=== PATIENT | male | born 1960 | race Caucasian/White ===

== ENCOUNTER 2017-08-29 09:50 | Observation (INO) | payer OTHER ==
[2017-08-23 09:11] VITALS: BMI 28.0
--- NOTE | 2017-08-23 09:43 | PAT Medication Instructions ---
Service Date Aug 23, 2017. Current Home Medication List Aspirin (Aspirin Ec), 81 MG PO DAILY Carvedilol (Coreg), 12.5 MG PO UD Finasteride (Proscar), 5 MG PO UD Irbesartan (Avapro), 150 MG PO UD Omeprazole (Prilosec), 20 MG PO UD Rosuvastatin Calcium (Crestor), 10 MG PO UD Tamsulosin HCl (Tamsulosin HCl), 1 TAB PO HS Medication Instructions For Your Scheduled Surgery - Continue as directed: Rosuvastatin Calcium (Crestor), 10 MG PO UD Omeprazole (Prilosec), 20 MG PO UD Carvedilol (Coreg), 12.5 MG PO UD - Check with surgeon for instructions: Aspirin (Aspirin Ec), 81 MG PO DAILY - Hold the following medications the morning of surgery: Finasteride (Proscar), 5 MG PO UD Irbesartan (Avapro), 150 MG PO UD - Take the following medications as scheduled the night before surgery: Tamsulosin HCl (Tamsulosin HCl), 1 TAB PO HS If you have any questions please call us at [phone] or [phone] or [phone]
--- NOTE | 2017-08-23 10:18 | DIAGNOSTIC IMAGING REPORT ---
CHEST 2 VIEWS ROUTINE CLINICAL HISTORY: Preoperative chest COMPARISON STUDY: No previous studies for comparison. FINDINGS: The cardiac and mediastinal contours are normal. There is no evidence of focal pulmonary consolidation. There is no evidence of failure. No pleural effusions are visualized.[ IMPRESSION: No active disease in the chest. Electronically signed by: Scot Lares M.D. 08/23/2017 10:17 AM Dictated Date/Time: 08/23/2017 10:17 AM
[2017-08-23 10:43] LABS: BASO % 0.3 %; BASO ABS # 0.02 K/uL (0-0.2); EOS % 2.1 %; EOS ABS # 0.15 K/uL (0-0.5); HEMATOCRIT 47.6 % (42-52); IG# 0.02 K/uL (0.00-0.02); LYMPH % 40.2 %; LYMPH ABS # 2.88 K/uL (1.2-3.4); MEAN CELL VOLUME 88.8 fL (80-100); MEAN CORPUSCULAR HEMOGLOBIN 29.9 pg (25-34); MEAN CORPUSCULAR HGB CONC 33.6 g/dl (32-36); MEAN PLATELET VOLUME 10.8 fL (7.4-10.4); MONO % 11.7 %; MONO ABS # 0.84 K/uL (0.11-0.59); NEUT % 45.4 %; NEUT ABS # 3.25 K/uL (1.4-6.5); PLATELET COUNT 156 K/uL (130-400); RED CELL DISTRIBUTION WIDTH SD 41.8 fL (36.4-46.3); WHITE BLOOD COUNT 7.16 K/uL (4.8-10.8)
[2017-08-23 11:43] LABS: CALCIUM 9.1 mg/dl (8.5-10.1); CREATININE 1.05 mg/dl (0.60-1.40); POTASSIUM 4.4 mmol/L (3.5-5.1)
[~2017-08-29] VITALS: Ht 182.9 cm; Wt 95.1 kg
[~2017-08-29 09:50] MED LIST: ASPI81TA28 PO; CARV12.52 PO; CIPROFLOXACIN / D5W 400 MG IV SCH; CRS/10 PO; FINA5TAB PO; FLM4 PO; IRBE-37 PO; LACTATED RINGER'S 1000ML 1,000 ML IV SCH; PRLSR20 PO
[2017-08-29] MEDS ORDERED: DIAZ-165 PO (10:22)
[2017-08-29 10:24] VITALS: BP 140/73; PULSE 80; TEMP 36.6; O2SAT 98; Ht 182.9 cm; Wt 95.1 kg
[2017-08-29] MEDS ORDERED: MEPERIDINE HCL 25 MG/ML CARP IV PRN (11:45)
[2017-08-29] MEDS ORDERED: FENTANYL CITRATE INJ 50 MCG/1 ML 2 ML VIAL IV PRN (11:45)
[2017-08-29] MEDS ORDERED: ONDANSETRON INJ 2 MG/ML 2 ML VIAL IV PRN ×2 (11:45→14:00)
[2017-08-29] MEDS ORDERED: ATROPINE SULFATE 0.1 MG/ML 5ML SYR IV PRN (11:45)
[2017-08-29] MEDS ORDERED: HYDROmorphone INJ 2 MG/ML SYR/VIAL IV PRN (11:45)
[2017-08-29] MEDS ORDERED: EpHEDrine SULFATE INJ 50 MG/ML AMP IV PRN (11:45)
[2017-08-29] MEDS ORDERED: LABETALOL HCL IV 5 MG/ML 20ML IV PRN (11:45)
[2017-08-29] MEDS ORDERED: NALOXONE HCL 0.4 MG/1 ML VIAL/CARP IV PRN (11:45)
[2017-08-29] MEDS ORDERED: FLUMAZENIL 0.1 MG/1 ML 10 ML VIAL IV PRN (11:45)
[2017-08-29] MEDS ORDERED: PHENYLEPHRINE 100MCG/ML 5ML SYR IV PRN (11:45)
[2017-08-29] MEDS ORDERED: DEXAMETHASONE SOD INJ 4 MG/ML VIAL ONE (11:48)
[2017-08-29] MEDS ORDERED: LIDOCAINE HCL 2% 2 ML VIAL (20MG/ML) ONE (11:48)
[2017-08-29] MEDS ORDERED: FENTANYL CITRATE INJ 50 MCG/1 ML 2 ML VIAL ONE ×2 (11:48→13:22)
[2017-08-29] MEDS ORDERED: PROPOFOL IV EMULSION 10 MG/ML 20 ML VIAL IV ONE (11:48)
[2017-08-29] MEDS ORDERED: MIDAZOLAM HCL 1 MG/ML 2ML VIAL ONE (11:48)
[2017-08-29] MEDS ORDERED: ONDANSETRON INJ 2 MG/ML 2 ML VIAL ONE (11:48)
--- NOTE | 2017-08-29 12:04 | History & Physical Bridge Note ---
H&P Re-Evaluation Bridge Note: I have examined the patient, reviewed the History & Physical and in the interval since the performance of the History & Physical I have noted the following changes of clinical significance: No changes noted
[2017-08-29] MEDS ORDERED: PHENYLEPHRINE 100MCG/ML 5ML SYR ONE (13:10)
[2017-08-29] MEDS ORDERED: BELLADONNA/OPIUM SUPP 60 MG SUPP PR ONE ×2 (13:10→13:12)
[2017-08-29] MEDS ORDERED: EpHEDrine SULFATE 50MG/5ML SYR ONE (13:10)
--- NOTE | 2017-08-29 13:37 | [facility] Post Operative Brief Note ---
Immediate Operative Summary Operative Date Aug 29, 2017. Pre-Operative Diagnosis Benign prostatic hyperplasia Post-Operative Diagnosis Benign prostatic hyperplasia Procedure(s) Performed Cystoscopy, Transurethral Resection Prostate Surgeon Dr. Levar Iglesias Beater Tender Surgeon(s) none Estimated Blood Loss 20ml Findings Consistent with Post-Op Diagnosis Specimens none Drains Peterson Anesthesia Type General Complication(s) none Disposition Accompanied Pt To Recover: yes Disposition: Recovery Room / PACU
[2017-08-29] MEDS ORDERED: PHEN-876 PO (13:56)
[2017-08-29] MEDS ORDERED: CIPR-255 PO (13:56)
--- NOTE | 2017-08-29 13:59 | Discharge Instructions ---
Discharge Instructions Date of Service Aug 29, 2017. Admission Reason for Admission: Benign Prostatic Hyperplasia W/Urinary Obstruction Discharge Discharge Diagnosis / Problem: BPH with urinary obstruction Discharge Goals Goal(s): Improve disease control, Therapeutic intervention Activity Recommendations Activity Limitations: as noted below Lifting Limitations: no more than 25 pounds (x 1 week ) Exercise/Sports Limitations: rest today, gradually increase as tolerated ( Light activity x 1 week ) Shower/Bathe: no limitations Driving or Machine Use: resume 3 days after discharge . Current Hospital Diet Patient's current hospital diet: Discharge Diet Recommended Diet: Regular Diet Procedures Procedures Performed: Cystoscopy, Transurethral Resection Prostate Pending Studies Studies pending at discharge: no Medical Emergencies . Who to Call and When: Medical Emergencies: If at any time you feel your situation is an emergency, please call 911 immediately. . Non-Emergent Contact Non-Emergency issues call your: Urologist Call Non-Emergent contact if: temperature is above 101.5, your pain is not controlled, your pain is worsening, your pain is unusual for you, your pain is concerning you, you have any medication questions . . "Provider Documentation" section prepared by Tami Valente. . VTE Core Measure Inpt VTE Proph given/why not?: SCD's
[2017-08-29] MEDS ORDERED: DIAZEPAM 5MG TAB PO PRN (14:00)
[2017-08-29] MEDS ORDERED: ACETAMINOPHEN 325 MG TAB PO PRN (14:00)
[2017-08-29] MEDS ORDERED: ACETAMINOPHEN/CODEINE 300/30MG TAB PO PRN ×2 (14:00)
--- NOTE | 2017-08-29 14:28 | Anesthesiology Progress Note ---
Anesthesia Post Op Note Date & Time Aug 29, 2017 at 14:28 Vital Signs Pain Intensity: 0 Vital Signs Past 12 Hours Date Time Temp Pulse Resp B/P (MAP) Pulse Ox O2 Delivery O2 Flow Rate FiO2 08/29/17 14:21 83 16 149/88 99 08/29/17 14:21 84 16 08/29/17 14:16 76 10 100 08/29/17 14:16 76 10 08/29/17 14:15 162/99 08/29/17 14:11 70 12 08/29/17 14:11 70 12 100 08/29/17 14:10 144/95 08/29/17 14:06 65 11 08/29/17 14:06 65 11 100 08/29/17 14:05 134/98 08/29/17 14:01 67 10 99 08/29/17 14:01 68 10 08/29/17 14:00 135/90 08/29/17 13:58 68 10 08/29/17 13:58 67 10 99 08/29/17 13:55 124/83 08/29/17 13:53 70 16 98 08/29/17 13:53 71 16 08/29/17 13:52 71 13 08/29/17 13:52 72 13 98 08/29/17 13:50 113/79 08/29/17 13:47 74 17 08/29/17 13:47 74 17 97 08/29/17 13:45 119/71 08/29/17 13:43 113/69 08/29/17 13:42 36.4 79 16 113/69 (75) 96 Oxymask 10 08/29/17 13:42 80 08/29/17 13:42 80 96 08/29/17 10:24 36.6 80 18 140/73 (95) 98 Room Air Notes Mental Status: alert / awake / arousable, participated in evaluation Pt Amnestic to Procedure: Yes Nausea / Vomiting: adequately controlled Pain: adequately controlled Airway Patency, RR, SpO2: stable & adequate BP & HR: stable & adequate Hydration State: stable & adequate Anesthetic Complications: no major complications apparent
[2017-08-29] MEDS ORDERED: IV FLUIDS COMPLETED PRN (15:00)
[2017-08-29 15:09] VITALS: BP 148/90; PULSE 65; TEMP 36.6; O2SAT 99
[2017-08-29 15:10] VITALS: O2SAT 99
[2017-08-29] MEDS ORDERED: INFLUENZA VIRUS QUAD VACCINE 0.5 ML SYR IM. ONE (15:45)
[2017-08-29] MEDS ORDERED: INFLUENZA ADMINISTRATION CHARGE ONE (15:45)
[2017-08-29] MEDS: LACTATED RINGER'S 1000ML 1,000 ML IV SCH ×2 (15:57→23:40)
[2017-08-29 17:00] VITALS: BP 148/82; PULSE 84; TEMP 36.8; O2SAT 95
[2017-08-29 18:10] VITALS: BP 135/76; PULSE 84; TEMP 37.2; O2SAT 94
[2017-08-29 23:10] VITALS: BP 118/68; PULSE 110; TEMP 36.7; O2SAT 94
[2017-08-30 01:15] VITALS: PULSE 90
[2017-08-30 03:43] VITALS: BP 115/65; PULSE 115; TEMP 36.8; O2SAT 95
[2017-08-30 04:30] VITALS: PULSE 97
[2017-08-30] MEDS ORDERED: NURSING VERBAL MED ORDER ONE (04:30)
[2017-08-30 05:51] LABS: EOS % 0.1 %; EOS ABS # 0.01 K/uL (0-0.5); HEMATOCRIT 42.3 % (42-52); HEMOGLOBIN 13.9 g/dL (14.0-18.0); IG# 0.04 K/uL (0.00-0.02); LYMPH % 14.2 %; LYMPH ABS # 1.84 K/uL (1.2-3.4); MEAN CELL VOLUME 88.3 fL (80-100); MEAN CORPUSCULAR HGB CONC 32.9 g/dl (32-36); MEAN PLATELET VOLUME 10.9 fL (7.4-10.4); MONO % 6.5 %; MONO ABS # 0.85 K/uL (0.11-0.59); NEUT % 78.9 %; NEUT ABS # 10.24 K/uL (1.4-6.5); PLATELET COUNT 161 K/uL (130-400); RED CELL DISTRIBUTION WIDTH CV 12.5 % (11.5-14.5); RED CELL DISTRIBUTION WIDTH SD 40.1 fL (36.4-46.3); WHITE BLOOD COUNT 12.98 K/uL (4.8-10.8)
[2017-08-30] MEDS: LACTATED RINGER'S 1000ML 1,000 ML IV SCH (06:10)
[2017-08-30 06:27] LABS: CALCIUM 8.5 mg/dl (8.5-10.1); CREATININE 1.03 mg/dl (0.60-1.40); POTASSIUM 4.1 mmol/L (3.5-5.1)
[2017-08-30 06:57] VITALS: BP 125/76; PULSE 98; TEMP 36.7; O2SAT 97
--- NOTE | 2017-08-30 07:10 | Progress Note ---
Subjective Date of Service: Aug 30, 2017. Subjective Pt evaluation today including: conversation w/ patient, physical exam, lab review Voiding: almonte catheter in place did very well overnight - tolerating diet -oob and ambulating - anxious to go home Review of Systems Constitutional: No see HPI, No fever, No chills, No sweats, No weight loss, No weakness, No fatigue, No problem reported Eyes: No see HPI, No worsening of vision, No eye pain, No redness, No discharge , No diplopia, No problem reported ENT: No see HPI, No hearing loss, No unusual epistaxis, No nasal symptoms, No sore throat, No tinnitus, No dental problems, No trouble swallowing, No problem reported Respiratory: No see HPI, No cough, No sputum, No wheezing, No shortness of breath, No dyspnea on exertion, No dyspnea at rest, No hemoptysis, No problem reported Cardiac: No see HPI, No chest pain, No orthopnea, No PND, No edema, No claudication, No palpitations, No problem reported Breast: No see HPI, No breast lump, No change in shape, No nipple discharge, No breast pain, No problem reported Abdomen: No see HPI, No pain, No nausea, No vomiting, No diarrhea, No constipation, No GI bleeding, No problem reported Male : + problem reported Neurologic: No see HPI, No memory loss, No paralysis, No weakness, No numbness/ tingling, No vertigo, No balance problems, No problem reported Psychiatric: No see HPI, No depression symptoms, No anhedonism, No anxiety, No insomnia, No substance abuse, No problem reported Heme: No see HPI, No abnormal bleeding/bruising, No clotting problems, No swollen lymph nodes, No night sweats, No problem reported Endo: No see HPI, No fatigue, No excessive thirst, No excessive urination, No problem reported Objective Vital Signs Date Time Temp Pulse Resp B/P (MAP) Pulse Ox O2 Delivery O2 Flow Rate FiO2 08/30/17 06:57 36.7 98 19 125/76 (92) 97 Room Air 08/30/17 04:30 97 08/30/17 03:43 36.8 115 18 115/65 (82) 95 Room Air 08/30/17 01:15 90 08/29/17 23:30 Room Air 08/29/17 23:10 36.7 110 20 118/68 (85) 94 Room Air 08/29/17 18:10 37.2 84 18 135/76 (95) 94 Room Air 08/29/17 17:00 36.8 84 16 148/82 (104) 95 Room Air 08/29/17 15:50 Room Air 08/29/17 15:10 99 Nasal Cannula 2.0 08/29/17 15:09 36.6 65 16 148/90 (109) 99 Nasal Cannula 2.0 08/29/17 14:40 36.3 69 16 142/98 (103) 100 Nasal Cannula 2 08/29/17 14:21 83 16 149/88 99 08/29/17 14:21 84 16 08/29/17 14:16 76 10 100 08/29/17 14:16 76 10 08/29/17 14:15 162/99 08/29/17 14:11 70 12 08/29/17 14:11 70 12 100 08/29/17 14:10 144/95 08/29/17 14:06 65 11 08/29/17 14:06 65 11 100 08/29/17 14:05 134/98 08/29/17 14:01 67 10 99 08/29/17 14:01 68 10 08/29/17 14:00 135/90 08/29/17 13:58 68 10 08/29/17 13:58 67 10 99 08/29/17 13:55 124/83 08/29/17 13:53 70 16 98 08/29/17 13:53 71 16 08/29/17 13:52 71 13 08/29/17 13:52 72 13 98 08/29/17 13:50 113/79 08/29/17 13:47 74 17 08/29/17 13:47 74 17 97 08/29/17 13:45 119/71 08/29/17 13:43 113/69 18 13:42 36.4 79 16 113/69 (75) 96 Oxymask 10 08/29/17 13:42 80 18 13:42 80 96 08/29/17 10:24 36.6 80 18 140/73 (95) 98 Room Air Physical Exam General Appearance: no apparent distress Eyes: normal inspection Respiratory/Chest: no respiratory distress, no accessory muscle use Cardiovascular: no edema Abdomen: non tender, soft Extremities: no pedal edema Neurologic/Psychiatric: alert, normal mood/affect, oriented x 3 Laboratory Results Last 24 Hours Test 08/30/17 05:26 White Blood Count 12.98 K/uL Red Blood Count 4.79 M/uL Hemoglobin 13.9 g/dL Hematocrit 42.3 % Mean Corpuscular Volume 88.3 fL Mean Corpuscular Hemoglobin 29.0 pg Mean Corpuscular Hemoglobin Concent 32.9 g/dl Platelet Count 161 K/uL Mean Platelet Volume 10.9 fL Neutrophils (%) (Auto) 78.9 % Lymphocytes (%) (Auto) 14.2 % Monocytes (%) (Auto) 6.5 % Eosinophils (%) (Auto) 0.1 % Basophils (%) (Auto) 0.0 % Neutrophils # (Auto) 10.24 K/uL Lymphocytes # (Auto) 1.84 K/uL Monocytes # (Auto) 0.85 K/uL Eosinophils # (Auto) 0.01 K/uL Basophils # (Auto) 0.00 K/uL RDW Standard Deviation 40.1 fL RDW Coefficient of Variation 12.5 % Immature Granulocyte % (Auto) 0.3 % Immature Granulocyte # (Auto) 0.04 K/uL Sodium Level 136 mmol/L Potassium Level 4.1 mmol/L Chloride Level 103 mmol/L Carbon Dioxide Level 27 mmol/L Anion Gap 6.0 mmol/L Blood Urea Nitrogen 14 mg/dl Creatinine 1.03 mg/dl Est Creatinine Clear Calc Drug Dose 95.8 ml/min Estimated GFR () 93.7 Estimated GFR (Non- 80.8 BUN/Creatinine Ratio 13.2 Random Glucose 156 mg/dl Calcium Level 8.5 mg/dl Assessment and Plan POD#1 s/p TURP - catheter out today - plan for d.c home assuming transportation is available
[2017-08-30 07:20] VITALS: BP 125/76; PULSE 98; TEMP 36.7; O2SAT 97
[2017-08-30] MEDS ORDERED: PANTOprazole SOD 40 MG TAB PO SCH (09:00)
--- NOTE | 2017-08-30 18:20 | Discharge Summary ---
Discharge Summary Date of Service Aug 30, 2017. Discharge Summary Admission Date: Aug 29, 2017 at 10:10 Discharge Date: Aug 30, 2017 Discharge Disposition: Home Principal Diagnosis: BPH Procedures: TURP Medication Reconciliation New Medications: Ciprofloxacin Hcl (Cipro) 500 Mg Tab 500 MG PO BID, #6 TAB 0 Refills Phenazopyridine HCl (Pyridium) 200 Mg Tab 200 MG PO TID PRN for Bladder pain, #15 TAB Continued Medications: Carvedilol (Coreg) 12.5 Mg Tab 12.5 MG PO UD, TAB pt non compliant Diazepam (Valium) 5 Mg Tab 5 MG PO TID PRN for Anxiety, TAB Irbesartan (Avapro) 150 Mg Tab 150 MG PO UD, TAB pt non compliant Omeprazole (Prilosec) 20 Mg Capcr 20 MG PO UD, CAP pt non compliant Rosuvastatin Calcium (Crestor) 10 Mg Tab 10 MG PO UD, TAB pt non compliant Discontinued Medications: Aspirin (Aspirin Ec) 81 Mg Tab 81 MG PO DAILY pt non compliant Finasteride (Proscar) 5 Mg Tab 5 MG PO UD, TAB pt non compliant Tamsulosin HCl (Tamsulosin HCl) 0.4 Mg Cap 1 TAB PO HS pt non compliant Hospital Course Admitted for TURP - details as dictated previously in the operative reports, however, in summary, he tolerated the procedure very well. He progressed well overnight and passed a voiding trial in the morning of post operative day #1. He was subsequently discharged home in stable condition. Total time spent on discharge = This includes examination of the patient, discharge planning, medication reconciliation, and communication with other providers. Discharge Instructions Please see previously written d/c instructions
[2017-08-30] MEDS ORDERED: ROSUVASTATIN CALCIUM 10 MG TAB PO SCH (21:00)
--- NOTE | 2017-08-31 16:07 | [facility] Operative Report ---
Operative Report Operative Date Aug 31, 2017. Pre-Operative Diagnosis Benign prostatic hyperplasia Post-Operative Diagnosis Benign prostatic hyperplasia Procedure(s) Performed Cystoscopy, Transurethral Resection Prostate Surgeon Dr. Levar Iglesias Library Supervisor Surgeon(s) none Estimated Blood Loss 20ml Findings High bladder neck; lateral lobe hypertrophy Specimens none Drains Peterson Anesthesia Type General Complication(s) none Disposition yes Recovery Room / PACU Description of Procedure The patient was identified in the preoperative holding area, appropriate informed consents were reviewed and completed, and he was transported to the operating suite. Upon arrival received appropriate preoperative antibiotics in the form of ciprofloxacin. Adequate general anesthesia was achieved, he was placed in dorsal lithotomy position where he was sterilely prepped draped in standard fashion. I began the case by passing a 24 Portuguese resectoscope with 30 degree lens and visual obturator. Inspection revealed lateral lobe hypertrophy with a very high bladder neck. Full inspection of the bladder was conducted, no major mucosal abnormalities were appreciated. Ureteral orifices were in orthotopic position in several cm from the bladder neck. There was clear efflux bilaterally. Following my inspection, exchanged the visual layout operator for resecting element with the button electrode. Incisions were made in the bladder neck at 5 and 7 o'clock a line from the ureteral orifices towards the veru montanum. Care was used to avoid encroachment upon the ureteral orifices. I then resected the tissue between the 2 incisions flattening the bladder neck. Lateral lobe hypertrophy was addressed next, beginning on the left and then ultimately moving to the right. Care was used to avoid over resection around the area of the apex. Before concluding the case, ensured excellent hemostasis and then withdrew the scope. A 22 Portuguese catheter was placed without difficultyand the case concluded. Patient was extubated and taken to the PACU in stable condition I attest to the content of the Intraoperative Record and any orders documented therein. Any exceptions are noted below.
== END 2017-08-30 09:59 | disposition home or self-care (01) ==
LOC: C.ACU 09:50 → C.MSW 10:10 → ENRESERV 14:27
PROVIDERS: ADMIT Urology; ATTEND Urology
DX: N40.1 Benign prostatic hyperplasia with lower urinary tract symptoms (principal); M19.90 Unspecified osteoarthritis, unspecified site; E78.5 Hyperlipidemia, unspecified; E78.00 Pure hypercholesterolemia, unspecified; I25.2 Old myocardial infarction; I25.10 Atherosclerotic heart disease of native coronary artery without angina pectoris; I10 Essential (primary) hypertension; Z87.442 Personal history of urinary calculi; Z82.49 Family history of ischemic heart disease and other diseases of the circulatory system; Z80.42 Family history of malignant neoplasm of prostate; Z79.82 Long term (current) use of aspirin; Z95.5 Presence of coronary angioplasty implant and graft; Z87.891 Personal history of nicotine dependence

== ENCOUNTER → 2017-10-04 | Outpatient (CLI) | payer OTHER ==
[~2017-10-04] MED LIST changes: -ASPI81TA28 PO; +CIPR-255 PO; -CIPROFLOXACIN / D5W 400 MG IV SCH; +DIAZ-165 PO; -FINA5TAB PO; -FLM4 PO; -LACTATED RINGER'S 1000ML 1,000 ML IV SCH; +PHEN-876 PO
== END | disposition home or self-care (01) ==
LOC: C.LABPBG 14:54
PROVIDERS: ATTEND Nurse Practitioner Adult Health
DX: R35.0 Frequency of micturition (principal)

== ENCOUNTER 2022-06-23 10:59 | Observation (INO) ==
[2022-06-23] MEDS ORDERED: ONDANSETRON INJ 2 MG/ML 2 ML VIAL IV STA (11:42)
[2022-06-23] MEDS ORDERED: MoRPHine SULFATE 4 MG/ML 1 ML CARP\\VIAL IV STA (11:42)
--- NOTE | 2022-06-23 11:44 | Emergency Department Note ---
Impression & Plan Chest pain ADMIT ED Provider Note HPI: The patient is a 62-year-old male with history of coronary artery disease, status post multiple stents that he reports were placed 3 years ago in [facility], presents emergency department from [facility] with a chief complaint of chest pain. Patient was here in the emergency department yesterday for the same complaint, states that he decided to sign himself out after he was actually placed for admission to the [facility] service as he was concerned about an upcoming court hearing. Patient states his pain returned last night, he has had multiple episodes of left-sided chest pain throughout the day today t hat were concerning for a coronary event as they felt similar nature to those that he has had in the past. On arrival here to the ED the patient states he does have some moderate chest discomfort, he is otherwise hemodynamically stable on arrival, saturating well on room air ROS: -Cardio: Chest pain *10 point review systems was conducted and is otherwise negative unless stated above *Outpatient medications and allergy history reviewed PE: General: Alert HEENT: Normocephalic, trachea midline Eyes: Extraocular eye movement is intact, no scleral erythema Pulmonary: Clear to auscultation bilaterally, no wheezing Cardio: Regular rate and rhythm GI: Abdomen is soft, nontender : No suprapubic tenderness MSK: No evidence of trauma or malformation of the extremities, no edema Skin: No evidence of rash Neuro: Alert, no focal deficits Psychiatric: Cooperative network operations specialist: - An order was placed for continuous cardiac monitoring - Patient was noted to be in sinus rhythm with a rate of 70 EKG: Rate: 72 Rhythm: Normal sinus rhythm Intervals: Within normal limits ST changes: No ST elevation Time: 11:07 Interventions provided in ED: -IV morphine, IV Zofran Medical Decision Making: Patient presented to the emergency department chief complaint of chest pain. He also presented yesterday for the same complaint and ultimately signed himself out of the hospital. He does have a history of coronary artery disease. Patient states he has had several episodes of intense but atypical chest pain since he left the hospital yesterday. On arrival here to the ED the patient complains of left-sided chest discomfort, his EKG does not show any ST elevation, he is otherwise hemodynamically stable. Patient was given IV morphine, IV Zofran, he states his pain is improved. EKG does not show any acute ischemic changes, troponin is negative x1. Chest x-ray does not show any acute disease. Patient was given aspirin in the ED, on my reassessment he states his pain is improved. He has had multiple episodes of atypical type chest pain since his discharge yesterday, I do have concern given his history that he warrants observation and possibly cardiology consultation for diagnostic catheterization. Patient is requesting admission at this time. [facility] service was consulted for admission and the patient was admitted in stable condition for further care. Diagnosis: 1. Chest pain, acute 2. History of coronary artery disease status post multiple stent Disposition: Admission Rodrigo Croft DO Emergency Medicine Past Med/Surg History Medical History (Updated 06/23/22 @ 12:40 by Rodrigo Croft DO) BPH (benign prostatic hyperplasia) CAD (coronary artery disease) Heart disease HLD (hyperlipidemia) Hypertension Surgical History History of cardiac catheterization Family History Brother Coronary heart disease Cancer Father Coronary heart disease Mother Cancer Other Hypertension Social History (Updated 06/22/22 @ 16:14 by Michelle Hansen PA-C) Smoking Status: Never smoker Hx Alcohol Use: No Hx Substance Use: No Feels Safe at Home: Yes Allergies Allergies Allergy/AdvReac Type Severity Reaction Status Date / Time No Known Allergies Allergy Verified 06/22/22 15:30 Home Meds Home Medications Medication Instructions Recorded Confirmed aspirin 81 mg tablet,delayed 81 mg PO QAM 06/22/22 06/22/22 release atorvastatin 40 mg tablet 40 mg PO QPM 06/22/22 06/22/22 carvedilol 12.5 mg tablet 12.5 mg PO BID 06/22/22 06/22/22 lorazepam 1 mg tablet 1 mg PO DAILY PRN Pain 06/22/22 06/22/22 nitroglycerin 0.4 mg sublingual 0.4 mg sublingual USEASDIRECTD PRN 06/22/22 06/22/22 tablet (Nitrostat) Chest Pain pantoprazole 40 mg tablet,delayed 40 mg PO DAILY 06/22/22 06/22/22 release Previous Rx's Medication Instructions Recorded clopidogrel 75 mg tablet 75 mg PO DAILY #30 tabs 06/22/22 isosorbide mononitrate 30 mg 30 mg PO DAILY #30 tabs 06/22/22 tablet,extended release 24 hr ranolazine 500 mg tablet,extended 500 mg PO BID #60 tabs 06/22/22 release,12 hr (Ranexa) Results & Data (ED) Vital Signs Vital Signs - 24 hr 06/23/22 11:07 06/23/22 11:07 06/23/22 11:49 Temperature 36.7 C Temperature Source Oral Pulse Rate 72 Pulse Rate [Right Finger] Pulse Rhythm Regular Pulse Rhythm [Right Finger] Pulse Strength Normal Pulse Strength [Right Finger] Respiratory Rate 16 Respiratory Effort / Characteristics Non-Labored Respiratory Depth Normal Respiratory Pattern Regular Blood Pressure 120/83 Blood Pressure [Right Arm] Blood Pressure Mean 95 Blood Pressure Mean [Right Arm] Blood Pressure Position Lying Blood Pressure Position [Right Arm] Pulse Oximetry 95 Oxygen Delivery Method Room Air Room Air Room Air Sepsis Recent Fever Within 48 Hours No Sepsis New/Unexplained Change in Mental Status No Sepsis Action Taken by Nursing No Action Required 06/23/22 12:00 Temperature Temperature Source Pulse Rate Pulse Rate [Right Finger] 65 Pulse Rhythm Pulse Rhythm [Right Finger] Regular Pulse Strength Pulse Strength [Right Finger] Normal Respiratory Rate 18 Respiratory Effort / Characteristics Non-Labored Respiratory Depth Normal Respiratory Pattern Regular Blood Pressure Blood Pressure [Right Arm] 137/82 Blood Pressure Mean Blood Pressure Mean [Right Arm] 100 Blood Pressure Position Blood Pressure Position [Right Arm] Lying Pulse Oximetry 96 Oxygen Delivery Method Room Air Sepsis Recent Fever Within 48 Hours Sepsis New/Unexplained Change in Mental Status Sepsis Action Taken by Nursing Laboratory Data Result diagrams: 06/23/22 11:10 06/23/22 11:10 Lab Results 06/23/22 06/23/22 06/23/22 Range/Units 11:10 11:10 11:10 WBC 7.15 (4.8-10.8) K/ul RBC 4.92 (4.63-6.08) M/uL Hgb 14.7 (14.0-18.0) g/dl Hct 43.7 (40.1-51.0) % MCV 88.8 (80.0-100.0) fL MCH 29.9 (25.0-34.0) pg MCHC 33.6 (32.0-36.0) g/dL RDW Std Deviation 40.4 (36.4-46.3) fL RDW Coeff of Lara 12.4 (11.5-14.5) % Plt Count 191 (130-400) K/uL MPV 11.5 (9.4-12.4) fL Immature Gran % (Auto) 0.1 % Neut % (Auto) 46.2 % Lymph % (Auto) 41.5 % Glades % (Auto) 10.8 % Eos % (Auto) 0.8 % Baso % (Auto) 0.6 % Neut # (Auto) 3.30 (1.4-6.5) K/uL Lymph # (Auto) 2.97 (1.2-3.4) K/uL Glades # (Auto) 0.77 (0.24-0.82) K/uL Eos # (Auto) 0.06 (0-0.50) K/uL Baso # (Auto) 0.04 (0-0.2) K/uL Immature Gran # (Auto) 0.01 (0.00-0.02) K/uL PT 10.3 (9.0-12.0) Seconds INR 1.0 (0.9-1.1) APTT 26.4 (21.0-31.0) Seconds PTT Ratio 1.0 Troponin I High Sens 7.0 (0-20) pg/ml Administered Medications Discontinued Medications Morphine Sulfate (Morphine Sulfate 4 Mg/Ml 1 Ml Carp\Vial) 4 mg IV NOW STA Stop: 06/23/22 11:43 Last Admin: 06/23/22 11:52 Dose: 4 mg Documented By: AP Ondansetron HCl (Ondansetron Inj 2 Mg/Ml 2 Ml Vial) 4 mg IV NOW STA Stop: 06/23/22 11:43 Last Admin: 06/23/22 11:52 Dose: 4 mg Documented By: AP Imaging Data Radiologist's Impression: Chest X-Ray 06/23/22 11:42 XR chest 1V portable HISTORY: 62 years-old Male Chest Pain acute chest pain COMPARISON: 06/22/2022 TECHNIQUE: AP view of the chest FINDINGS: Cardiomediastinal and hilar silhouettes are within normal limits. No pneumothorax, pleural effusion, airspace consolidation or overt pulmonary edema. Degenerative changes of the shoulders and spine. IMPRESSION: No acute process. ACT 112: Negative or not required by law. The above report was generated using voice recognition software. It may contain grammatical, syntax or spelling errors. Electronically signed by: Jaiden Catalan M.D. 06/23/2022 12:23 PM Discharge Plan Visit Data Chief Complaint: Chest Pain Stated Complaint: CHEST PAIN ED Provider: Rodrigo Croft Discharge Problem: Chest pain Patient Disposition: Admitted As Inpatient Forms Stand Alone Forms: [facility] Prescriptions Prescriptions: No Action atorvastatin 40 mg Tablet 40 mg PO QPM carvedilol 12.5 mg Tablet 12.5 mg PO BID Rx Instructions: must administer with a meal/food aspirin 81 mg Tablet,Delayed Release (Dr/Ec) 81 mg PO QAM nitroglycerin [Nitrostat] 0.4 mg Tablet, Sublingual 0.4 mg sublingual USEASDIRECTD MDD 1.2mg PRN (Reason: Chest Pain) Rx Instructions: May repeat 5 mins after first dose. lorazepam 1 mg Tablet 1 mg PO DAILY PRN (Reason: Pain) pantoprazole 40 mg Tablet,Delayed Release (Dr/Ec) 40 mg PO DAILY clopidogrel 75 mg tablet 75 mg PO DAILY Qty: 30 0RF isosorbide mononitrate 30 mg tablet extended release 24 hr 30 mg PO DAILY Qty: 30 0RF ranolazine [Ranexa] 500 mg tablet extended release 12 hr 500 mg PO BID Qty: 60 0RF Referrals Referrals: Virginia SOLOMON [Primary Care Provider] -
[2022-06-23 12:07] LABS: Basophils # (auto) 0.04 K/uL (0-0.2); Basophils % (auto) 0.6 %; Eosinophils # (auto) 0.06 K/uL (0-0.50); Eosinophils % (auto) 0.8 %; Hematocrit (blood only) 43.7 % (40.1-51.0); Hemoglobin 14.7 g/dl (14.0-18.0); Immature Granulocytes # (auto) 0.01 K/uL (0.00-0.02); Immature Granulocytes % (auto) 0.1 %; Lymphocytes # (auto) 2.97 K/uL (1.2-3.4); Lymphocytes % (auto) 41.5 %; Mean Corpuscular Hemoglobin 29.9 pg (25.0-34.0); Mean Corpuscular Hgb Conc 33.6 g/dL (32.0-36.0); Mean Corpuscular Volume 88.8 fL (80.0-100.0); Mean Platelet Volume 11.5 fL (9.4-12.4); Monocytes # (auto) 0.77 K/uL (0.24-0.82); Monocytes % (auto) 10.8 %; Neutrophils % (auto) 46.2 %; Platelet Count 191 K/uL (130-400); RDW Coefficient of Variation 12.4 % (11.5-14.5); RDW Standard Deviation 40.4 fL (36.4-46.3); Red Blood Count 4.92 M/uL (4.63-6.08); White Blood Count 7.15 K/ul (4.8-10.8)
[2022-06-23 12:21] LABS: Partial Thromboplastin Time 26.4 Seconds (21.0-31.0); Prothrombin Time 10.3 Seconds (9.0-12.0)
--- NOTE | 2022-06-23 12:25 | XRay Report ---
XR chest 1V portable HISTORY: 62 years-old Male Chest Pain acute chest pain COMPARISON: 06/22/2022 TECHNIQUE: AP view of the chest FINDINGS: Cardiomediastinal and hilar silhouettes are within normal limits. No pneumothorax, pleural effusion, airspace consolidation or overt pulmonary edema. Degenerative changes of the shoulders and spine. IMPRESSION: No acute process. ACT 112: Negative or not required by law. The above report was generated using voice recognition software. It may contain grammatical, syntax o r spelling errors. Electronically signed by: Jaiden Catalan M.D. 06/23/2022 12:23 PM
[2022-06-23 12:42] LABS: Albumin Globulin Ratio 1.4 (0.9-2); Albumin Level 4.2 gm/dl (3.4-5.0); BUN Creatinine Ratio 19.8 (10-20); Bilirubin,Total 0.8 mg/dl (0.2-1.0); Calcium 9.7 mg/dl (8.5-10.1); Creatinine Clr Calc Pharmacy 103.3 ml/min; Est GFR (African American) 105.1 ml/min; Est GFR (Non-African American) 90.6 ml/min; Globulin 3.1 gm/dl (2.5-4.0); Potassium 4.1 mmol/L (3.5-5.1); Total Protein 7.3 gm/dl (6.0-8.3)
[2022-06-23] MEDS ORDERED: ASPIRIN CHEW 324 MG PO STA (12:54)
--- NOTE | 2022-06-23 13:19 | History & Physical Report ---
Date of Service June 23, 2022 Assessment & Plan (1) Chest pain: (2) CAD (coronary artery disease): (3) HLD (hyperlipidemia): (4) Hypertension: (5) GERD (gastroesophageal reflux disease): Plan 62-year-old with atypical chest pain unrelieved with nitro. No EKG changes. Troponin negative. Echo pending; cards consult pending. History of CAD status post unknown amount of stents in [facility] last year. CABG was recommended and patient declined. Chest Pain: CAD: History of CAD status post unknown amount of stents in [facility] last year. CABG was recommended and patient declined. Plavix was discontinued 06/02; restarted yesterday; continue Takes Ranolazine and ASA; continue Symptoms have been occurring for the past 48 hours intermittently; relieved with nitro. Patient has taken 9 nitro since 99 Describes chest pain as crushing; currently 2 out of 10 HSTrop yesterday negative x2 Initial HSTrop today 7.0; will trend ECHO ordered and pending Morphine PRN for pain O2 for decreased demand; 2LNC. O2 96% RA Case discussed with on-call Cardiology; await further recommendations re: diagnostic cath HTN: On Imdur and Coreg; normotensive in ED; continue Coreg was recently DC 06/02; restarted yesterday HLD: On atorvastatin; continue Lipid panel pending GERD: Takes Pantoprazole; continue Does report some reflux symptoms Disposition: PCP: Dr. Viviana Carmona ([place]) Code Status: Full Code VTE Prophylaxis: Teds and SCDs for now I personally was able to review all current laboratory work and diagnostic images obtained in the ED. Additionally, I was able to review the patients past medication reconciliation and history with direct visualization in the patients chart. This patient was seen in collaboration with Dr. Winston. Please see his addendum in addition for further details. History of Present Illness Chief Complaint: chest pain Primary Care Provider: NEHA Coleman Mr. Kirk is a 62-year-old male that presented to [facility] via EMS today as he was experiencing crushing chest pain since 1:00 this morning. Patient additionally presented to the ED yesterday with similar symptoms however signed himself out AMA due to having a court hearing that is planned for tomorrow 06/24. Additional PMH includes: [place] status postcardiac stents in [facility] CAD, HTN, HLD, anxiety, and BPH. He reports that last year he was seen at [facility] in [place] and underwent a cardiac catheterization and he was recommended to undergo a CABG at that time; however, he denied proceeding with such. Patient stated that he typically uses Nitro twice monthly PRN. To further describe his event that he experienced last night as mentioned it started at 1 this morning and he reports it as 10 out of 10 crushing chest pain with radiation into his shoulder blade and jaw. He states ". I thought I was going to ". Patient reports that he also has been experiencing dizziness when he stands that has been occurring for the last week along with blurry vision. He was on Plavix and Imdur that were both recently discontinued on June 02 and which he states he feels is related to pharmacy changes. In the ED his EKG was unremarkable and initial troponin was negative. Yesterday his troponin ranged from 3-4. Pt. denies fever/chills, recent illness, URIAS, syncope, neck pain, orthopnea, cough, sore throat, abdominal pain, paresthesias, weakness, extremity weakness, extremity edema, rashes, urinary changes. Patient denies alcohol use, recreational drug use, tobacco use. Patient reports that he recently just got . I did discuss with him about having a cardiology consult placed and he is in agreement with such including admission to the hospital for further work-up. Patient will be admitted for further evaluation and management cardiology consult placed for evaluation of possible diagnostic cath. Please see A/P for further details. Allergies Allergy/AdvReac Type Severity Reaction Status Date / Time No Known Allergies Allergy Verified 06/22/22 15:30 Home Medications Medication Instructions Recorded Confirmed Type aspirin 81 mg tablet,delayed 81 mg PO QAM 06/22/22 06/23/22 History release atorvastatin 40 mg tablet 40 mg PO QPM 06/22/22 06/23/22 History carvedilol 12.5 mg tablet 12.5 mg PO BID 06/22/22 06/23/22 History clopidogrel 75 mg tablet 75 mg PO DAILY #30 tabs 06/22/22 06/23/22 Rx isosorbide mononitrate 30 mg 30 mg PO DAILY #30 tabs 06/22/22 06/23/22 Rx tablet,extended release 24 hr lorazepam 1 mg tablet 1 mg PO DAILY PRN Pain 06/22/22 06/23/22 History nitroglycerin 0.4 mg sublingual 0.4 mg sublingual USEASDIRECTD PRN 06/22/22 06/23/22 History tablet (Nitrostat) Chest Pain pantoprazole 40 mg tablet,delayed 40 mg PO DAILY 06/22/22 06/23/22 History release ranolazine 500 mg tablet,extended 500 mg PO BID #60 tabs 06/22/22 06/23/22 Rx release,12 hr (Ranexa) Past Med/Surg History Medical History BPH (benign prostatic hyperplasia) CAD (coronary artery disease) GERD (gastroesophageal reflux disease) Heart disease HLD (hyperlipidemia) Hypertension Surgical History History of cardiac catheterization Family History Brother Coronary heart disease Cancer Father Coronary heart disease Mother Cancer Other Hypertension Social History Smoking Status: Never smoker Hx Alcohol Use: No Hx Substance Use: No Preferred Language: Kyrgyz Communication Ability: Effective Senior Applications Developer Required: No Beliefs That Will Affect Care: None Current Living Situation: Other Current Living Situation Comment: correctional facility Other Information That Helps Us Care for You: No Feels Safe at Home: Yes Safety Concerns: Feels Safe At This Time Assistive Devices: None Review of Systems Review of Systems: Neuro: (-) Falls, trauma, slurred speech HEENT: (-) URIAS, dizziness, dysphagia, visual or auditory changes CV: (+) CP, palpitations, (-) swelling Resp: (-) SOB GI: (-) appetite changes, N/V/D, bowel changes : (-) urinary changes Skin: (-) rashes Psych: (-) anxiety, depression Physical Exam Physical Exam: Neuro: AAOx4, PERRLA, no aphagia, memory changes, CNII-XII grossly intact HEENT: head normocephalic, moist mucus membranes CV: S1/S2, (-) M/G/R, (-) edema, cap refill < 3 seconds (-) JVD Resp: Lungs CTA in all leary. On RA GI: Abdomen S/NT/ND, Ax4 bowel sounds, (-) CVA tenderness Musculoskeletal: 5/5 B/L UE strength, 5/5 B/L LE strength. No gait disturbance Skin: (-) rashes , (-) erythema. Psych: euthymic mood Results & Data Results & Data ([facility]) Vital Signs (Past 12 Hours) Vital Signs Temp Pulse Pulse Resp BP BP Pulse Ox 06/23/22 12:00 65 18 137/82 96 06/23/22 11:49 06/23/22 11:07 06/23/22 11:07 36.7 C 72 16 120/83 95 O2 Del Method 06/23/22 12:00 Room Air 06/23/22 11:49 Room Air 06/23/22 11:07 Room Air 06/23/22 11:07 Room Air Laboratory Results Short CBC 06/23/22 Range/Units 11:10 WBC 7.15 (4.8-10.8) K/ul Hgb 14.7 (14.0-18.0) g/dl Hct 43.7 (40.1-51.0) % Plt Count 191 (130-400) K/uL BMP 06/23/22 11:10 Sodium 137 Potassium 4.1 Chloride 104 Carbon Dioxide 23 BUN 18 Creatinine 0.91 Glucose 90 Calcium 9.7 Liver Function 06/23/22 Range/Units 11:10 Total Bilirubin 0.8 (0.2-1.0) mg/dl AST 23 (13-39) U/L ALT 17 (7-52) U/L Alkaline Phosphatase 53 (34-104) U/L Albumin 4.2 (3.4-5.0) gm/dl Diagnostic Findings Chest X-Ray 06/23/22 11:42 XR chest 1V portable HISTORY: 62 years-old Male Chest Pain acute chest pain COMPARISON: 06/22/2022 TECHNIQUE: AP view of the chest FINDINGS: Cardiomediastinal and hilar silhouettes are within normal limits. No pneumothorax, pleural effusion, airspace consolidation or overt pulmonary edema. Degenerative changes of the shoulders and spine. IMPRESSION: No acute process. ACT 112: Negative or not required by law. The above report was generated using voice recognition software. It may contain grammatical, syntax or spelling errors. Electronically signed by: Jaiden Catalan M.D. 06/23/2022 12:23 PM ECG Additional Comments: EKG: Rate: 72 Rhythm: Normal sinus rhythm Intervals: Within normal limits ST changes: No ST elevation Code Status & VTE Plan Code Status Full code in the event of cardiac or respiratory arrest VTE Prophylaxis Plan VTE Prophylaxis will be ordered: Yes Supervising Physician Co-Signing Physician Notes Care coordinated with VERNON Jack. Agree with above note. Patient seen and examined. Please refer to her notes for full details. Vital signs reviewed. Physical exam: General exam: Alert and oriented. Not in acute distress. CVS: S1 and S2 heard, regular rate and rhythm, no murmurs. RS: Clear to auscultation, no wheezing or crackles. ABD: Soft, bowel sounds present, nontender, no distention. HAND MOLDER: Nonfocal. EXT: No edema, no erythema. Labs: Reviewed. Assessment and plan: 62M with hx of Cad ,Htn, Hyperlipidemia who says he has cardiac stent placed and last one about one and half year ago comes with chest pain from [facility]. He was here yesterday in [place] with similar complaints but signed out AMA as he has a court hearing. But patient says again in night pain came back severe and he thought he will and took nitro as candy. Currently his pain is 2-4/10 in severity. Last night pain radiated to left jaw and arm. Currently hemodynamics stable. Says pain is getting to go up gain and requesting something else for pain instead of nitros as he already had them. Having nitro headache. No fevers. No sob. No nausea currently. Chest pain hx of CAd as continuinng to have chest pain s/p cardiac cath: 30% proximal LAD 30% ostial left circumflex Medical management recommended. HTN home meds will monitor Other diagnosis and plan of care as per VERNON Jack MD.
[2022-06-23] MEDS ORDERED: MoRPHine SULFATE 2 MG/ML CARP IV STA (14:21)
--- NOTE | 2022-06-23 14:22 | Cardiology Consultation ---
Date of Consultation June 23, 2022 Assessment & Plan (1) Coronary artery disease involving cahuilla coronary artery with unstable angina pectoris: (2) Dyslipidemia, goal LDL below 70: Plan 62-year-old patient with history of coronary artery disease, myocardial infarction, and prior multivessel stenting presents with recurrent symptoms reminiscent of prior angina and myocardial infarction. Chest discomfort improved with sublingual nitroglycerin. Chronically treated with antianginal medication including Ranexa, isosorbide monohydrate and clopidogrel. Cardiac enzymes are negative. ECG initially with nonspecific T wave abnormality which has normalized. Bedside 2D transthoracic echocardiogram demonstrates a subtle/equivocal apical anteroseptal wall motion abnormality. Due to ongoing chest discomfort and significant cardiac history as detailed above, I discussed the risk versus benefit of repeat coronary angiography versus stress testing. Patient declines stress testing as he states "I fail those in the past". He is agreeable to coronary angiography. History of Present Illness Reason for Consultation: Chest pain, CAD Requesting Physician: Sakshi JUNIOR Attending Physician: [facility] Sorin History of Present Illness 62-year-old patient with a history of coronary disease and prior multivessel stenting presents to the ER with chest pain. Initially presented yesterday however left due to a court hearing which was scheduled for today. Overnight he states he experienced an additional episode of severe squeezing left-sided chest discomfort rated 11/10 lasting several minutes. Pain seems to wax and wane and has now settled as a dull ache in the left side of his chest. He has taken nearly 10 sublingual nitroglycerin overnight which temporarily relieves his discomfort. Chronically treated with both isosorbide monohydrate and Ranexa the outside test eng (likely from [facility]). Initial ECG performed 06/22/2022 with mild anterior T wave flattening. Subsequent ECGs without ischemic changes. Bedside 2D transthoracic echocardiogram demonstrates subtle apical anteroseptal hypokinesis. Patient reports history of 2 heart attacks in the past 3 years requiring 2 stents in [facility]. States presenting chest pain is similar to prior angina. Currently resting comfortably with ongoing mild left-sided chest discomfort. Denies orthopnea, PND, palpitations, lightheadedness, dizziness, syncope, or near syncope. Voices concern regarding family history of coronary disease including a brother who in his mid 40s. Allergies Allergy/AdvReac Type Severity Reaction Status Date / Time No Known Allergies Allergy Verified 06/22/22 15:30 Home Medications Medication Instructions Recorded Confirmed Type aspirin 81 mg tablet,delayed 81 mg PO QAM 06/22/22 06/23/22 History release atorvastatin 40 mg tablet 40 mg PO QPM 06/22/22 06/23/22 History carvedilol 12.5 mg tablet 12.5 mg PO BID 06/22/22 06/23/22 History lorazepam 1 mg tablet 1 mg PO DAILY PRN Pain 06/22/22 06/23/22 History nitroglycerin 0.4 mg sublingual 0.4 mg sublingual USEASDIRECTD PRN 06/22/22 06/23/22 History tablet (Nitrostat) Chest Pain pantoprazole 40 mg tablet,delayed 40 mg PO DAILY 06/22/22 06/23/22 History release Patient History Medical History BPH (benign prostatic hyperplasia) CAD (coronary artery disease) GERD (gastroesophageal reflux disease) Heart disease HLD (hyperlipidemia) Hypertension Surgical History History of cardiac catheterization Family History Brother Coronary heart disease Cancer Father Coronary heart disease Mother Cancer Other Hypertension Social History Smoking Status: Never smoker Hx Alcohol Use: No Hx Substance Use: No Preferred Language: Welsh Communication Ability: Effective Animal Pathology Teacher Required: No Beliefs That Will Affect Care: None Current Living Situation: Other Current Living Situation Comment: correctional facility Other Information That Helps Us Care for You: No Feels Safe at Home: Yes Safety Concerns: Feels Safe At This Time Assistive Devices: None Review of Systems Review of Systems: All systems reviewed & are unremarkable except as noted in Subjective Physical Exam Constitutional: well developed and well nourished; no acute distress Respiratory: normal respiratory effort; no respiratory distress, no labored breathing and no retractions Auscultation: lungs clear to auscultation bilaterally; no diminished lung sounds, no crackles, no rales, no rhonchi and no wheezes Cardiovascular: Rate/Rhythm: regular rate and regular rhythm Heart Sounds: normal S1 and normal S2; no murmur Palpation: normal PMI Vessels: radial pulses present; no JVD and no carotid bruit Extremities: no edema Gastrointestinal (Abdomen): Inspection/Auscultation: abdomen normal to inspection and normal bowel sounds; abdomen not distended Percussion/Palpation: abdomen soft; abdomen nontender, no guarding and abdomen not rigid Neurologic: CN's II-XI intact bilaterally and moves all extremities; no focal motor deficits Psychiatric: A+Ox3, euthymic affect Results & Data ([facility]) Vital Signs (Past 12 Hours) Vital Signs Temp Pulse Pulse Resp BP BP Pulse Ox 06/23/22 12:00 65 18 137/82 96 06/23/22 11:49 06/23/22 11:07 06/23/22 11:07 36.7 C 72 16 120/83 95 O2 Del Method 06/23/22 12:00 Room Air 06/23/22 11:49 Room Air 06/23/22 11:07 Room Air 06/23/22 11:07 Room Air Laboratory Results Cardiac Enzymes 06/23/22 Range/Units 11:10 AST 23 (13-39) U/L Troponin I High Sens 7.0 (0-20) pg/ml Coagulation 06/23/22 Range/Units 11:10 PT 10.3 (9.0-12.0) Seconds APTT 26.4 (21.0-31.0) Seconds CBC 06/23/22 Range/Units 11:10 WBC 7.15 (4.8-10.8) K/ul RBC 4.92 (4.63-6.08) M/uL Hgb 14.7 (14.0-18.0) g/dl Hct 43.7 (40.1-51.0) % Plt Count 191 (130-400) K/uL Neut # (Auto) 3.30 (1.4-6.5) K/uL Lymph # (Auto) 2.97 (1.2-3.4) K/uL Wells # (Auto) 0.77 (0.24-0.82) K/uL Eos # (Auto) 0.06 (0-0.50) K/uL Baso # (Auto) 0.04 (0-0.2) K/uL Comprehensive Metabolic Panel 06/23/22 Range/Units 11:10 Sodium 137 (136-145) mmol/L Potassium 4.1 (3.5-5.1) mmol/L Chloride 104 (98-107) mmol/L Carbon Dioxide 23 (21-32) mmol/L BUN 18 (6-23) mg/dl Creatinine 0.91 (0.6-1.4) mg/dl Glucose 90 (70-99(Fasting)) mg/dl Calcium 9.7 (8.5-10.1) mg/dl AST 23 (13-39) U/L ALT 17 (7-52) U/L Alkaline Phosphatase 53 (34-104) U/L Total Protein 7.3 (6.0-8.3) gm/dl Albumin 4.2 (3.4-5.0) gm/dl Intake and Output 06/22/22 06/23/22 06/23/22 22:59 06:59 14:59 Other: Weight 97.7 kg Weight Measurement Method Built in [facility] Patient Weight 06/24/22 06:59 Weight 97.7 kg Diagnostic Findings Left heart cath with coronary angiography 09/04/2017 [facility]: Patent mid LAD stent. Otherwise mild luminal irregularities. Left circumflex is nondominant with no disease. Right coronary artery is dominant large caliber, no significant disease. 2D echo 09/04/17: Normal left ventricular systolic function, ejection fraction 55-59% Grade 1 diastolic dysfunction. No significant valvular pathology. ECG Additional Comments: ECG 06/23/2022: Normal sinus rhythm, normal ECG. Compared to prior study dated 06/22/2022, no significant change.
[2022-06-23] MEDS ORDERED: LORazepam 1 MG TAB PO PRN (14:38)
[2022-06-23] MEDS ORDERED: NITROGLYCERIN SL 0.4 MG/TAB TAB SL PRN (14:38)
[2022-06-23] MEDS ORDERED: niCARdipine HCL INJ 2.5 MG/ML 10 ML AMP ONE (15:15)
[2022-06-23] MEDS ORDERED: MIDAZOLAM HCL 1 MG/ML 2ML VIAL ONE (15:15)
[2022-06-23] MEDS ORDERED: NITROGLYCERIN/D5W 100MCG/ML 20ML SYR ONE (15:15)
[2022-06-23] MEDS ORDERED: fentaNYL citrate 100 MCG/2 ML VIAL ONE (15:15)
[2022-06-23] MEDS ORDERED: HEPARIN (PORCINE) 1000 UNIT/ML 10 ML (CATH LAB USE ONLY) ONE (15:15)
[2022-06-23 15:38] LABS: Chol HDL Ratio 6.5 (0-5)
--- NOTE | 2022-06-23 15:38 | Pre Anesthesia Assessment ---
Date of Service June 23, 2022 Pre Sedation Assessment Vital Signs Temp Pulse Pulse Resp BP BP Pulse Ox 06/23/22 16:19 64 15 137/86 93 06/23/22 14:00 71 18 127/89 95 06/23/22 12:00 65 18 137/82 96 06/23/22 11:49 06/23/22 11:07 06/23/22 11:07 36.7 C 72 16 120/83 95 O2 Del Method 06/23/22 16:19 Room Air 06/23/22 14:00 Room Air 06/23/22 12:00 Room Air 06/23/22 11:49 Room Air 06/23/22 11:07 Room Air 06/23/22 11:07 Room Air Cardiovascular + regular rate and + regular rhythm + S1 normal and + S2 normal; no murmur + femoral pulses present and + radial pulses present; no JVD and no carotid bruit no edema Respiratory + respiratory effort normal; no respiratory distress, no labored breathing and no retractions no crackles, no rales, no rhonchi and no wheezes Pre-Sedation Airway Assessment Smoking Status: Never smoker NPO Status Date of Last Intake of Fluids: 06/22/22 Date of Last Intake of Solid Food: 06/22/22 Procedure Planning Contraindications for Sedation: none Current Medications Reviewed: Yes Notes The planned sedation has been discussed with the patient. Informed Consent was obtained. I have identified the patient, determined the appropriateness of sedation and have assessed the patient immediately prior to the procedure. All medicine(s) and interventions are by my order.
[2022-06-23 15:44] LABS: Troponin I High Sensitivity 5.9 pg/ml (0-20)
--- NOTE | 2022-06-23 16:16 | Post Anesthesia Assessment ---
Date of Service June 23, 2022 Post Sedation Assessment Vital Signs Temp Pulse Pulse Resp BP BP BP 06/24/22 10:50 36.5 C 60 16 111/74 136/84 06/24/22 08:00 54 L 06/24/22 08:00 06/24/22 06:52 36.5 C 60 16 111/74 06/24/22 02:51 36.6 C 66 20 109/76 06/24/22 00:52 65 06/23/22 22:59 36.4 C L 66 22 121/80 06/23/22 19:30 36.4 C L 68 20 120/84 06/23/22 18:40 69 19 06/23/22 18:30 79 16 06/23/22 18:30 139/85 06/23/22 18:20 65 06/23/22 18:10 69 06/23/22 18:01 80 20 06/23/22 18:01 150/89 H 06/23/22 18:00 76 14 06/23/22 17:50 65 10 L 06/23/22 17:45 65 13 06/23/22 17:30 65 20 06/23/22 17:30 129/85 06/23/22 17:16 121/83 06/23/22 17:16 76 19 06/23/22 17:15 73 24 06/23/22 17:06 130/87 06/23/22 17:06 72 15 06/23/22 17:00 75 16 06/23/22 16:45 61 06/23/22 16:45 126/79 06/23/22 16:39 63 20 06/23/22 18:00 64 06/23/22 16:41 36.9 C 60 20 135/80 06/23/22 16:34 68 16 136/84 06/23/22 16:19 64 15 137/86 06/23/22 14:00 71 18 127/89 06/23/22 12:00 65 18 137/82 Pulse Ox O2 Del Method 06/24/22 10:50 96 06/24/22 08:00 06/24/22 08:00 Room Air 06/24/22 06:52 96 Room Air 06/24/22 02:51 95 Room Air 06/24/22 00:52 06/23/22 22:59 95 Room Air 06/23/22 19:30 96 Room Air 06/23/22 18:40 95 06/23/22 18:30 96 06/23/22 18:30 06/23/22 18:20 94 06/23/22 18:10 95 06/23/22 18:01 96 06/23/22 18:01 06/23/22 18:00 95 06/23/22 17:50 95 06/23/22 17:45 95 06/23/22 17:30 96 06/23/22 17:30 06/23/22 17:16 06/23/22 17:16 94 06/23/22 17:15 95 06/23/22 17:06 06/23/22 17:06 96 06/23/22 17:00 06/23/22 16:45 94 06/23/22 16:45 06/23/22 16:39 94 06/23/22 18:00 06/23/22 16:41 94 Room Air 06/23/22 16:34 94 Room Air 06/23/22 16:19 93 Room Air 06/23/22 14:00 95 Room Air 06/23/22 12:00 96 Room Air Recovery Score Activity: Moves 4 extremities Respiration: Deep Breath/Cough Circulation: +/-20% PreAnes Value Consciousness: Arouseable (by name) Discharge Sedation Level of Care: Phase I Post Sedation Plan On clinical assessment, the patient appears to have tolerated the sedation without complications. Patient is recovering as anticipated. Patient will continue to be monitored by nursing and may be discharged when sedation discharge criteria are met per below protocol. Upon Completions of procedure up to 15 minutes continue every 5 minute vital signs and the P.A.R. score; then discharge to a Phase I or Fast Track to Phase II per the following guidelines: * Discharge Patient to appropriate Phase II area if PAR is 8 or greater or return to pre- procedure baseline. The post - procedure orders will be as directed. * If PAR score is less than 8 or not return to pre-procedure baseline then patient will follow Phase I monitoring till PAR is reached for Phase II. The Phase I may be done in procedure room or may call to secure a Phase I area. * If naloxone or flumazenil are used for reversal, hold in Phase I for continued monitoring from when last reversal dose was given for a minimum of 60 minutes or longer pending the nurse and/or physician discretion of patient condition before discharge to Phase II. Please call the Sedation Physician to re-evaluate and complete post-note for discharge to Phase II area. Do NOT discharge from procedure sedation or Phase 1 until post- sedation evaluation note is complete by procedure /sedation MD Sedation Discharge Instructions to be given to the patient at discharge to home.
--- NOTE | 2022-06-23 16:27 | Cardiac Catheterization ---
Cardiac Cath Procedure Full Procedure Date June 23, 2022 Pre-Procedure Diagnosis Pre-Procedure Diagnosis: Angina and CAD AUC Score AUC Score: 7 Post-Procedure Diagnosis Post-Procedure Diagnosis: Mild CAD Procedure(s) Performed Procedure(s) Performed: Coronary Angiography and Left Heart Cath Gameplay Engineer Mikey Mcmahan DO Bore Mill Operator For Plastic(s) Showers RN Estimated Blood Loss Estimated Blood Loss: 5cc Medication(s) Medication(s): Fentanyl, Heparin, Lidocaine 1%, Nicardipine, Nitroglycerin and Versed Summary of Findings 30% proximal LAD 30% ostial left circumflex There is no evidence of prior coronary intervention. Hemodynamics Rest Ao:: 98/66/82 Final Ao: 110/67/87 LV: 99/0/1 Recommendations Recommendations: Medical Therapy and/or Counseling Specimens Specimens: None Radiation Exposure (mGy) 811 Contrast (mls) 35 Fluids (cc crystalloids) Fluids (cc crystalloids): 211 Nss Drains Drains: N/A Anesthesia Moderate sedation. Start 1536. End 1611. Sedation monitor: Marisol HAYES Procedural Complication(s) None I attest to the content of the Intraoperative Record and any orders documented therein. Any exceptions are noted below. ACC Data: Resource Protection Specialist Cardiac Status Clinical evaluation leading to the procedure 62-year-old patient with a reported history of multivessel coronary disease and multivessel stenting presented with anginal symptoms similar to prior ischemic events. CAD Presenation: Unstable angina Anginal Classification: CCS III Heart Failure: No Coronary Anatomy Dominant: Right Left Main (% Stenosis): Normal LAD (% Stenosis): Proximal (30%) and Mid (10%) D1 (% Stenosis): Normal Circumflex (% Stenosis): Ostial (30%) OM1 (% Stenosis): Normal OM2 (% Stenosis): Normal RCA (% Stenosis): Proximal (20%) R PDA (% Stenosis): Normal R PL1 (% Stenosis): Normal Diagnostic Physicians Name: Mikey Mcmahan DO Closure Device Percutaneous Entry Location: Radial Closure Device: Radial Band Recommendations: Medical Therapy and/or Counseling Intraprocedure Events Significant Disection: No Perforation: No
[2022-06-23] MEDS ORDERED: ACETAMINOPHEN 325 MG TAB PO PRN (16:41)
[2022-06-23] MEDS ORDERED: ONDANSETRON INJ 2 MG/ML 2 ML VIAL IV PRN (16:41)
[2022-06-23] MEDS ORDERED: MAGNESIUM HYDROXIDE SUSP 30 ML UDC PO PRN (16:41)
[2022-06-23] MEDS ORDERED: POLYETHYLENE (MIRALAX) 17 GM PACK PO PRN (16:41)
[2022-06-23] MEDS ORDERED: ALUMINUM/MAGNESIUM SUSP 30 ML UDC PO PRN (16:41)
[2022-06-23] MEDS ORDERED: MoRPHine SULFATE 2 MG/ML CARP IV PRN (17:00)
--- NOTE | 2022-06-23 20:56 | Electrocardiogram Report ---
Test Reason : Blood Pressure : / mmHG Vent. Rate : 072 BPM Atrial Rate : 072 BPM P-R Int : 158 ms QRS Dur : 082 ms QT Int : 388 ms P-R-T Axes : 039 -17 034 degrees QTc Int : 424 ms Poor data quality, interpretation may be adversely affected Normal sinus rhythm Normal ECG When compared with ECG of 22-JUN-2022 15:06, No significant change was found Confirmed by Levar Beltran ([id number]) on 06/23/2022 8:56:13 PM Referred By: Confirmed By:Corby Beltran
[2022-06-23] MEDS ORDERED: RANOLAZINE 500 MG ER TAB PO SCH (21:00)
[2022-06-23] MEDS ORDERED: ATORVASTATIN 40 MG TAB PO SCH (21:00)
[2022-06-23] MEDS: carvediloL 12.5 MG TAB PO SCH (21:41)
[2022-06-24 06:38] LABS: Basophils # (auto) 0.03 K/uL (0-0.2); Basophils % (auto) 0.5 %; Eosinophils # (auto) 0.16 K/uL (0-0.50); Eosinophils % (auto) 2.7 %; Hematocrit (blood only) 41.8 % (40.1-51.0); Hemoglobin 13.9 g/dl (14.0-18.0); Immature Granulocytes # (auto) 0.01 K/uL (0.00-0.02); Immature Granulocytes % (auto) 0.2 %; Lymphocytes # (auto) 2.56 K/uL (1.2-3.4); Lymphocytes % (auto) 42.5 %; Mean Corpuscular Hemoglobin 29.9 pg (25.0-34.0); Mean Corpuscular Hgb Conc 33.3 g/dL (32.0-36.0); Mean Corpuscular Volume 89.9 fL (80.0-100.0); Mean Platelet Volume 11.1 fL (9.4-12.4); Monocytes # (auto) 0.65 K/uL (0.24-0.82); Monocytes % (auto) 10.8 %; Neutrophils # (auto) 2.61 K/uL (1.4-6.5); Neutrophils % (auto) 43.3 %; Platelet Count 163 K/uL (130-400); RDW Coefficient of Variation 12.5 % (11.5-14.5); RDW Standard Deviation 41.1 fL (36.4-46.3); Red Blood Count 4.65 M/uL (4.63-6.08); White Blood Count 6.02 K/ul (4.8-10.8)
[2022-06-24 07:00] LABS: Calcium 9.2 mg/dl (8.5-10.1); Creatinine Clr Calc Pharmacy 94.1 ml/min; Est GFR (African American) 93.7 ml/min; Est GFR (Non-African American) 80.9 ml/min; Potassium 4.3 mmol/L (3.5-5.1)
[2022-06-24] MEDS: carvediloL 12.5 MG TAB PO SCH (08:11)
[2022-06-24] MEDS ORDERED: PANTOprazole 40 MG TAB PO SCH (09:00)
[2022-06-24] MEDS ORDERED: ASPIRIN 81 MG ECTAB PO SCH (09:00)
[2022-06-24] MEDS ORDERED: CLOPIDOGREL BISULFATE 75 MG TAB PO SCH (09:00)
[2022-06-24] MEDS ORDERED: ISOSORBIDE MONO EXTENDED REL 30 MG TABCR PO SCH (09:00)
--- NOTE | 2022-06-24 11:59 | Cardiology Progress Note ---
Date of Service June 24, 2022 Assessment & Plan (1) Non-cardiac chest pain: (2) CAD (coronary artery disease): (3) Dyslipidemia, goal LDL below 70: Plan Results of cardiac catheterization reviewed. No indication for Ranexa, isosorbide monohydrate, or clopidogrel. Continue low-dose aspirin and statin therapy. Post cardiac catheterization activity restrictions listed below. ACTIVITY RECOMMENDATIONS: Excess manipulation of the wrist should be avoided for the next 24-48 hours. * No lifting over 2 pounds (approximately a 1/2 gallon of milk) with the utilized arm for 24 hours. * No strenuous activity such as bowling or tennis for 3 days. * Keep the site of the procedure covered with a bandage for 24 hours. *You may shower the day after the procedure. Do not take a tub bath or submerge the puncture site in water for the next 3 days. *Do not operate any motorized equipment for 3 days. SPECIAL CARE INSTRUCTIONS: The site may be slightly bruised and sore following your procedure. Should any of the following occur, contact the Dr. who performed your procedure. 1. Redness/inflammation, swelling, chills, or fever, or colored drainage at procedure site within 3-7 days after your procedure. 2. Coldness, discoloration, ongoing numbness, severe pain, or swelling. Expect mild tingling of hand and tenderness at the puncture site for up to three days. If this persists beyond three days, or other symptoms develop, notify the Dr. who performed your procedure. BLEEDING: If the procedure site on your wrist begins to bleed, do not panic 1. Place 1 or 2 fingers firmly just slightly above the insertion site to stop the bleeding. You may be able to feel your pulse as you hold pressure. 2. Lift your finger after 5 minutes to see if the bleeding has stopped. 3. Once the bleeding has stopped, gently wipe the wrist area clean with a bandage. * If the bleeding from your wrist does not stop after 10 minutes, or if there is a large amount of bleeding or spurting, call 911 (do not drive yourself to the hospital). SKIN IRRITATION: * You may experience some redness and/or swelling in the area where radiation was administered. If any skin irritation occurs, please contact your family physician. FOLLOW UP VISIT: Keep any scheduled doctor appointments. Admission and Anticipated Discharge Date Admission Date: June 23, 2022 Subjective 62-year-old patient seen examined the bedside. Cardiac catheterization performed yesterday without evidence of obstructive CAD. No evidence of prior intervention. Chest discomfort has resolved. No dysrhythmias on telemetry. Mild anterior wrist discomfort noted without hematoma or ecchymosis. Review of Systems Review of Systems: All systems reviewed & are unremarkable except as noted in Subjective Physical Exam Constitutional: well developed and well nourished; no acute distress Respiratory: normal respiratory effort; no respiratory distress, no labored breathing and no retractions Auscultation: lungs clear to auscultation bilaterally; no diminished lung sounds, no crackles, no rales, no rhonchi and no wheezes Cardiovascular: Rate/Rhythm: regular rate and regular rhythm Heart Sounds: normal S1 and normal S2; no murmur Palpation: normal PMI Vessels: femoral pulses present and radial pulses present (No ecchymosis or hematoma); no JVD and no carotid bruit Extremities: no edema Gastrointestinal (Abdomen): Inspection/Auscultation: abdomen normal to inspection and normal bowel sounds; abdomen not distended Percussion/Palpation: abdomen soft; abdomen nontender, no guarding and abdomen not rigid Neurologic: CN's II-XI intact bilaterally and moves all extremities; no focal motor deficits Psychiatric: A+Ox3, euthymic affect Results & Data ([facility]) Vital Signs (Past 12 Hours) Vital Signs Temp Pulse Pulse Resp BP BP Pulse Ox 06/24/22 10:50 36.5 C 60 16 111/74 136/84 96 06/24/22 08:00 54 L 06/24/22 08:00 06/24/22 06:52 36.5 C 60 16 111/74 96 06/24/22 02:51 36.6 C 66 20 109/76 95 06/24/22 00:52 65 O2 Del Method 06/24/22 10:50 06/24/22 08:00 06/24/22 08:00 Room Air 06/24/22 06:52 Room Air 06/24/22 02:51 Room Air 06/24/22 00:52
--- NOTE | 2022-06-24 17:59 | Discharge Summary ---
Date of Service June 24, 2022 Admission HPI Per Admitting Provider Mr. Kirk is a 62-year-old male that presented to [facility] via EMS today as he was experiencing crushing chest pain since 1:00 this morning. Patient additionally presented to the ED yesterday with similar symptoms however signed himself out AMA due to having a court hearing that is planned for tomorrow 06/24. Additional PMH includes: MO status postcardiac stents in [facility] CAD, HTN, HLD, anxiety, and BPH. He reports that last year he was seen at [facility] in [place] and underwent a cardiac catheterization and he was recommended to undergo a CABG at that time; however, he denied proceeding with such. Patient stated that he typically uses Nitro twice monthly PRN. To further describe his event that he experienced last night as mentioned it started at 1 this morning and he reports it as 10 out of 10 crushing chest pain with radiation into his shoulder blade and jaw. He states ". I thought I was going to ". Patient reports that he also has been experiencing dizziness when he stands that has been occurring for the last week along with blurry vision. He was on Plavix and Imdur that were both recently discontinued on June 02 and which he states he feels is related to pharmacy changes. In the ED his EKG was unremarkable and initial troponin was negative. Yesterday his troponin ranged from 3-4. Pt. denies fever/chills, recent illness, URIAS, syncope, neck pain, orthopnea, cough, sore throat, abdominal pain, paresthesias, weakness, extremity weakness, extremity edema, rashes, urinary changes. Patient denies alcohol use, recreational drug use, tobacco use. Patient reports that he recently just got . I did discuss with him about having a cardiology consult placed and he is in agreement with such including admission to the hospital for further work-up. Patient will be admitted for further evaluation and management cardiology consult placed for evaluation of possible diagnostic cath. Please see A/P for further details. Admission Exam Per Admitting Provider Neuro: AAOx4, PERRLA, no aphagia, memory changes, CNII-XII grossly intact HEENT: head normocephalic, moist mucus membranes CV: S1/S2, (-) M/G/R, (-) edema, cap refill < 3 seconds (-) JVD Resp: Lungs CTA in all leary. On RA GI: Abdomen S/NT/ND, Ax4 bowel sounds, (-) CVA tenderness Musculoskeletal: 5/5 B/L UE strength, 5/5 B/L LE strength. No gait disturbance Skin: (-) rashes , (-) erythema. Psych: euthymic mood Principal Diagnosis Atypical chest pain Discharge Exam Constitutional: WD/WN, vitals as above, NAD, sitting up in bed, pleasant, conversing easily Respiratory: normal respiratory effort, lungs clear to auscultation, no wheeze, rales, rhonchi. Normal insp/exp effort, no accessory muscle use Cardiovascular: RRR, no murmur, no edema Vessels: no JVD or carotid bruit Chest: normal inspection of chest Abdomen: normal bowel sounds, soft, nontender, no hepatosplenomegaly Musculoskeletal: no cyanosis or clubbing, extremities motor strength 5/5 Skin: no rashes, warm and dry normal turgor Neurologic: PERRL, EOMI, accommodation nl, no face palsy, no dysarthria CN's II- XI intact bilaterally and moves all extremities Psychiatric: A+Ox3, euthymic affect Lymphatic: no cervical or axillary lymphadenopathy : deferred Discharge Data Allergies Allergy/AdvReac Type Severity Reaction Status Date / Time No Known Allergies Allergy Verified 06/22/22 15:30 Consultations 06/23/22 12:54 ED Decision to Admit Stat 06/23/22 14:03 Consult Cardiology Routine 06/23/22 15:09 Consult Cardiac Catheterization Stat Procedures Performed Operation Date: 06/23/22 15:00 Actual Procedures s Cineradiography w/Routine Exam - Mikey Mcmahan DO p Cath, Left with Cors and Vent - Mikey Mcmahan DO Ordered Studies 06/23/22 15:01 CL Cath Imgs for PACS use only Stat Hospital Course (1) Chest pain: (2) CAD (coronary artery disease): (3) HLD (hyperlipidemia): (4) Hypertension: (5) GERD (gastroesophageal reflux disease): Plan Patient is a 62-year-old male who presented to the ED with severe chest pain. Patient reported past history of heart attack with stent placed when he was hospitalized in [facility] and in [place] in the past. In the ED, EKG did not show any ST or T wave changes. Troponin was negative. Patient was evaluated by cardiology and underwent left heart cath for possible unstable angina. Patient was found to have mild occlusive CAD; no stents were identified during the procedure as per cardiology. Patient was monitored overnight on telemetry. On the day of the discharge, patient reported that his chest pain has improved. Imdur, Plavix and Ranexa was discontinued at the time of discharge. He was continued on aspirin and statin. The information was discussed with Dr. Carmona at the correctional facility. Patient was stable at the time of discharge. Total Time Total Time Spent Total Time Spent (In Minutes): 35 Total Time Includes: Examination of the Patient, Discharge Planning, Medication Reconciliation, Communication With Other Providers and Other Discharge Plan Discharge Items Patient Disposition: [facility] Reason For Visit: CHEST PAIN Discharge Diagnosis: Atypical Chest pain Activity: Resume your previous activity Non-emergency contact: Primary Care Provider Call non-emergency contact if: you have any medication questions Follow-up/Referrals: Virginia SOLOMON [Primary Care Provider] - Diet: Regular Addtl Attending Provider Instructions: You were admitted to the hospital with chest pain. You were found to have mild non-obstructive coronary artery disease on heart catherization. Plavix, Ranexa and imdur are stopped. Please continue your other medications. Follow up with PCP. Pending Studies at Discharge: No Stand-Alone Forms: My [facility] Skilled Items Patient informed of condition?: Yes Discharge Level of Care: Other Communicable Disease: No Discharge Prognosis: Stable Lines: None Urinary Catheter: No Medications and DC Order Prescriptions: Continued atorvastatin 40 mg Tablet 40 mg PO QPM carvedilol 12.5 mg Tablet 12.5 mg PO BID Rx Instructions: must administer with a meal/food aspirin 81 mg Tablet,Delayed Release (Dr/Ec) 81 mg PO QAM nitroglycerin [Nitrostat] 0.4 mg Tablet, Sublingual 0.4 mg sublingual USEASDIRECTD MDD 1.2mg PRN (Reason: Chest Pain) Rx Instructions: May repeat 5 mins after first dose. lorazepam 1 mg Tablet 1 mg PO DAILY PRN (Reason: Pain) pantoprazole 40 mg Tablet,Delayed Release (Dr/Ec) 40 mg PO DAILY Discontinued clopidogrel 75 mg tablet 75 mg PO DAILY Qty: 30 0RF isosorbide mononitrate 30 mg tablet extended release 24 hr 30 mg PO DAILY Qty: 30 0RF ranolazine [Ranexa] 500 mg tablet extended release 12 hr 500 mg PO BID Qty: 60 0RF Discharge Orders: Discharge Order (Routine); Ordered 06/24/22 Ordered By: Kobe Loco Admission Data Admit Date/Time: 06/23/22 13:12 Attending Provider: Kobe Loco Admit Provider: Domingo Winston Primary Care Provider: Virginia SOLOMON Other Providers: Mikey Mcmahan Rajendra P. Other Interventions: Discharge Summary Assessment (RN) Last Done: 06/24/22 10:50
--- NOTE | 2022-06-24 20:06 | Electrocardiogram Report ---
Test Reason : Blood Pressure : / mmHG Vent. Rate : 059 BPM Atrial Rate : 059 BPM P-R Int : 162 ms QRS Dur : 090 ms QT Int : 422 ms P-R-T Axes : 066 023 030 degrees QTc Int : 417 ms Sinus bradycardia Otherwise normal ECG When compared with ECG of 23-JUN-2022 11:07, No significant change was found Confirmed by Levar Beltran ([id number]) on 06/24/2022 8:06:03 PM Referred By: Virginia SOLOMON Confirmed By:Corby Beltran
== END 2022-06-24 11:42 | DRG 287 ==
LOC: ED 10:59 → EDINP 13:12 → SUATTDRO 13:12 → INTOOBSV 13:12 → EDINP 15:39 → 2E 16:33
DX: E78.5 Hyperlipidemia, unspecified; Z79.899 Other long term (current) drug therapy; I25.10 Atherosclerotic heart disease of native coronary artery without angina pectoris; N40.0 Benign prostatic hyperplasia without lower urinary tract symptoms; K21.9 Gastro-esophageal reflux disease without esophagitis; Z79.02 Long term (current) use of antithrombotics/antiplatelets; I10 Essential (primary) hypertension; Z82.49 Family history of ischemic heart disease and other diseases of the circulatory system; Z79.82 Long term (current) use of aspirin